=== PATIENT | female | born 1985 | race Caucasian/White ===

== ENCOUNTER 2018-02-12 22:17 | Inpatient (IN) ==
[~2018-02-12 22:17] MED LIST: Diphtheria/Tetanus/Pertussis Vaccine Inj 0.5 ML Syringe IM ONE; Measles/Mumps/Rubella Vaccine Inj 0.5 ML Vial SQ ONE
[2018-02-12] MEDS ORDERED: Oxytocin 30 Units/500ml Premix 30 UNITS/500 ML BAG IV.SIG ONE (22:29)
[2018-02-12] MEDS ORDERED: Penicillin G Potassium Inj 5,000,000 UNIT in Sodium Chloride 0.9% Inj 100 ML IV.SIG ONE (22:29)
[2018-02-12] MEDS ORDERED: Sodium Chlor 0.9% Inj 500 ML IV.SIG PRN (22:29)
[2018-02-12] MEDS ORDERED: Naloxone Inj 0.4 MG/ML Vial IV.PUSH PRN ×2 (22:29→23:20)
[2018-02-12] MEDS ORDERED: fentaNYL Citrate Inj 100 MCG/2 ML Ampul IV.PUSH PRN ×2 (22:29)
[2018-02-12] MEDS ORDERED: Sod Chloride 0.9% Inj 1,000 ML IV.CONT PRN (22:29)
[2018-02-12] MEDS ORDERED: Citric Acid/Sodium Citrate Liq 30 ML UDC PO SCH (22:30)
--- NOTE | 2018-02-12 22:36 | ED ---
History of Present Illness Primary Care Physician: Dr. Fuentes Chief Complaint: Complains of spontaneous rupture of membranes and contractions History of Present Illness: 32-year-old at term - 38.1 weeks presents complaining of spontaneous rupture of membranes and contractions. GBS positive. Otherwise care uneventful with Dr. Fuentes Gestation:: 38 Para: 0 : 1 - Inpatient Certification I certify that the inpatient services were ordered in accordance with Medicare regulations governing the order. This includes certification that hospital inpatient services are reasonable and necessary and in the case of services not specified as inpatient-only under 42 CFR 419.22(n), that they are appropriately provided as inpatient services in accordance to with the 2-midnight benchmark under 43 CFR 412.3(e) Review of Systems All other systems reviewed negative except as stated in HPI PMFSH - Social History I have reviewed the patient's Social History: Yes - Tobacco History Smoking Status: Never smoker - Alcohol History How Often Do You Have a Drink Containing Alcohol: Never - Substance Use History Substance History: No History of Abuse Medications and Allergies Allergies Allergy/AdvReac Type Severity Reaction Status Date / Time No Known Allergies Allergy Verified 02/12/18 22:29 Exam - Constitutional severe distress - Routine HEENT Exam Head: Present: normocephalic ENT: Present: mucous membranes moist - Routine Neck Exam Present: supple - Routine Chest/Breast/Axilla Exam Chest wall: Absent: tenderness - Routine Respiratory Exam Absent: accessory muscle use - Routine Cardiovascular Exam Present: RRR - Routine Abdominal Exam Present: soft (Gravid heart tones present) - Routine Exam Comments: Cervix 7-8 cm soft 90% effaced 0 station - Routine Extremities Exam Absent: cyanosis - Routine Skin Exam Present: intact - Routine Neurological Exam Present: alert, oriented X3 Assessment and Plan - Diagnosis (1) Uterine contractions Status: Acute (2) Leakage of amniotic fluid Code(s): O42.90 - Premature rupture of membranes, unspecified as to length of time between rupture and onset of labor, unspecified weeks of gestation Status : Acute (3) 38 weeks gestation of Code(s): Z3A.38 - 38 weeks gestation of Status: Acute Discharge Plan - Discharge Disposition Patient Disposition: 30 Still Patient - Physicians Team ED Provider: Kaur Lowery Primary Care Provider: NOT REQUIRED,
--- NOTE | 2018-02-12 22:39 | P.HPOB ---
Patient Name: Luanne Flor Date of : 89 Patient Status: Inpatient Attending Provider: Rebeca Fuentes Date: 02/12/18 22:28 Initialization Date: 02/12/18 22:28 History of Present Illness Primary Care Physician: Dr. Fuentes Chief Complaint: Complains of spontaneous rupture of membranes and contractions History of Present Illness: 32-year-old at term - 38.1 weeks presents complaining of spontaneous rupture of membranes and contractions. GBS positive. Otherwise care uneventful with Dr. Fuentes Weeks Gestation:: 38 Para: 0 : 1 - Inpatient Certification I certify that the inpatient services were ordered in accordance with Medicare regulations governing the order. This includes certification that hospital inpatient services are reasonable and necessary and in the case of services not specified as inpatient-only under 42 CFR 419.22(n), that they are appropriately provided as inpatient services in accordance to with the 2-midnight benchmark under 43 CFR 412.3(e) Review of Systems All other systems reviewed negative except as stated in HPI PMFSH - Social History I have reviewed the patient's Social History: Yes - Tobacco History Smoking Status: Never smoker - Alcohol History How Often Do You Have a Drink Containing Alcohol: Never - Substance Use History Substance History: No History of Abuse Medications and Allergies Allergies Allergy/AdvReac Type Severity Reaction Status Date / Time No Known Allergies Allergy Verified 02/12/18 22:29 Exam - Constitutional severe distress - Routine HEENT Exam Head: Present: normocephalic ENT: Present: mucous membranes moist - Routine Neck Exam Present: supple - Routine Chest/Breast/Axilla Exam Chest wall: Absent: tenderness - Routine Respiratory Exam Absent: accessory muscle use - Routine Cardiovascular Exam Present: RRR - Routine Abdominal Exam Present: soft (Gravid heart tones present) - Routine Exam Comments: Cervix 7-8 cm soft 90% effaced 0 station - Routine Extremities Exam Absent: cyanosis - Routine Skin Exam Present: intact - Routine Neurological Exam Present: alert, oriented X3 Assessment and Plan - Diagnosis (1) Uterine contractions Status: Acute (2) Leakage of amniotic fluid Code(s): O42.90 - Premature rupture of membranes, unspecified as to length of time between rupture and onset of labor, unspecified weeks of gestation Status : Acute (3) 38 weeks gestation of Code(s): Z3A.38 - 38 weeks gestation of Status: Acute Discharge Plan - Physicians Team ED Provider: Kaur Lowery Primary Care Provider: NOT REQUIRED, Admit- Dr. Jacome aware GBS + -start ABX
[2018-02-12 22:45] LABS: Baso % (Auto) 0.4 % (0.0-2.0); Eos # (Auto) 0.1 th/mm3 (0.0-0.4); Eos % (Auto) 0.7 % (0.0-4.0); Hematocrit 37.3 % (35.0-46.0); Lymph # (Auto) 1.4 th/mm3 (1.0-4.8); Lymph % (Auto) 16.6 % (9.0-44.0); Mean Corpuscular Hemoglobin 33.2 pg (27.0-34.0); Mean Corpuscular Volume 94.8 fL (80.0-100.0); Mean Platelet Volume 9.5 fL (7.0-11.0); Mono # (Auto) 0.5 th/mm3 (0.0-0.9); Neut # (Auto) 6.5 th/mm3 (1.8-7.7); Neut % (Auto) 76.3 % (16.0-70.0); Platelet Count 141 th/mm3 (150-450); Red Blood Count 3.93 mil/mm3 (4.00-5.30); Red Cell Distribution Width 13.9 % (11.6-17.2); White Blood Count 8.5 th/mm3 (4.0-11.0)
[2018-02-12] MEDS ORDERED: Lidocaaine 1.5%/Epinephrine 1:200,000 PF Inj 5 ML Amp ONE (22:53)
[2018-02-12] MEDS ORDERED: Lidocaine PF 1% Inj 5 ML Vial ONE (22:53)
[2018-02-12] MEDS ORDERED: Lidocaine 1% Inj 50 ML Vial ONE (22:58)
[2018-02-12] MEDS ORDERED: Oxytocin 30 Units/500ml Premix 30 UNITS/500 ML BAG IV.CONT PRN (23:20)
[2018-02-12] MEDS ORDERED: Acetaminophen 325 MG Tablet PO PRN (23:20)
[2018-02-12] MEDS ORDERED: Zolpidem Tartrate 5 MG Tablet PO PRN (23:20)
[2018-02-12] MEDS ORDERED: Witch Hazel 50%/Glyderin 12.5% 40 Pad Jar RECTAL PRN (23:20)
[2018-02-12] MEDS ORDERED: Bisacodyl 10 MG Supp RECTAL PRN (23:20)
[2018-02-12] MEDS ORDERED: Benzocaine 20% Top Spray 60 ML Can TOPICAL PRN (23:20)
--- NOTE | 2018-02-12 23:21 | P.OBDELI ---
Weeks Gestation: 38 Patient Started Active Labor: Yes Medical Induction of Labor: No Artificial Rupture of Membrane: No Anesthesia: None, Lidocaine local to perineum Episiotomy: midline Vaginal Delivery: Normal Presentation: Occiput anterior Nuchal Cord: None Delayed Cord Clamping (45 sec): Yes Placenta: Spontaneous delivery, Intact, 3 vessel cord Laceration: Episiotomy, 1 deg Repair: Chromic running Estimated blood loss (mL): 200 : Female Infant Female A Delivery Date: 02/12/18 Delivery Time: 23:21 score (1 min): 9 score (5 min): 9
[2018-02-12 23:32] LABS: Bilirubin,Urine Negative (Negative); Clarity,Urine Clear (Clear); Color,Urine Straw (Yellw/Straw); Glucose,Urine (UA) Negative (Negative); Leukocyte Esterase,Urine Negative (Negative); Mucus,Urine Few /lpf (Occasional); Nitrite,Urine Negative (Negative); Specific Gravity,Urine 1.004 (1.002-1.035); Squamous Epithelial Cell,Urine <1 /hpf (0-5)
[2018-02-12 23:36] LABS: Amphetamine Urine With Conf Neg (Neg); Benzodiazepine Urine With Conf Neg (Neg); Cocaine Urine With Conf Neg (Neg); Opiates Urine With Conf Neg (Neg)
[2018-02-12 23:38] LABS: Cannabinoid Urine With Conf Neg (Neg)
[2018-02-13] MEDS ORDERED: Penicillin G Potassium Inj 2,500,000 UNIT in Sodium Chlor 0.9% Inj 100 ML IV.SIG SCH (02:30)
--- NOTE | 2018-02-13 07:54 | P.PNOB ---
Subjective Post day: 1 Interval history: doing well, no complaints, Objective Vital Signs/I&O: Vital Signs 02/12/18 22:33 02/12/18 23:12 02/12/18 23:22 Temperature Pulse Rate 96 H 107 H 108 H Respiratory Rate 18 Blood Pressure 142/73 H 143/111 H 148/58 H 02/12/18 23:31 02/12/18 23:41 02/12/18 23:45 Temperature Pulse Rate 106 H 92 H Respiratory Rate 18 Blood Pressure 133/58 L 132/58 L 02/13/18 00:05 02/13/18 00:16 02/13/18 00:20 Temperature 98.6 F Pulse Rate 95 H 90 91 H Respiratory Rate 18 18 Blood Pressure 143/68 H 139/68 134/68 02/13/18 00:47 02/13/18 01:01 02/13/18 01:50 Temperature 99.2 F Pulse Rate 84 87 Respiratory Rate 18 16 Blood Pressure 139/64 124/63 Intake & Output 02/12/18 02/13/18 02/13/18 18:59 06:59 18:59 Weight 77.111 kg Result Diagrams: 02/12/18 22:25 Objective Remarks: GENERAL: Well-nourished, well-developed patient. CARDIOVASCULAR: Regular rate and rhythm without murmurs, gallops, or rubs. RESPIRATORY: Breath sounds equal bilaterally. No accessory muscle use. ABDOMEN/GI: Abdomen soft, non-tender. Fundus: Firm, non-tender at umbilicus. GENITOURINARY: Light to moderate bleeding. EXTREMITIES: No cyanosis or edema, non-tender, without signs of DVT. Medications and IVs: Active Medications Acetaminophen (Tylenol) 650 mg PO Q4H PRN PRN Reason: PAIN SCALE 1 TO 2 Al Hydroxide/Mg Hydroxide (Milk Of Magnesia Liq) 30 ml PO Q12H PRN PRN Reason: Mild Constipation Benzocaine (Americaine 20% Top [place]) 1 spray TOPICAL Q4H PRN PRN Reason: For Perineum Discomfort Bisacodyl (Dulcolax Supp) 10 mg RECTAL DAILY PRN PRN Reason: SEVERE CONSITIPATION Citric Acid/Sodium Citrate (Sodium Citrate/Citric Acid Liq) 30 ml PO [facility] ANTONIA Stop: 02/16/18 22:29 Fentanyl Citrate (Fentanyl Inj) 50 mcg IV.PUSH Q1H PRN PRN Reason: Pain Scale 3 - 5 Fentanyl Citrate (Fentanyl Inj) 100 mcg IV.PUSH Q1H PRN PRN Reason: PAIN SCALE 6 TO 10 Lactated Ringer's (Lr 1000 Ml Inj) 1,000 mls @ 3,000 mls/hr IV.SIG UNSCH PRN PRN Reason: compromise or epidural Lactated Ringer's (Lr 1000 Ml Inj) 1,000 mls @ 125 mls/hr IV.CONT .Q8H ANTONIA Last Admin: 02/12/18 22:20 Dose: 125 mls/hr Sodium Chloride (Ns Inj) 500 mls @ 1,000 mls/hr IV.SIG UNSCH PRN PRN Reason: SEE LABEL COMMENTS Sodium Chloride (Ns Inj) 1,000 mls @ 100 mls/hr IV.CONT .Q10H PRN PRN Reason: SEE LABEL COMMENTS Penicillin G Potassium 2,500, (000 unit/ Sodium Chloride) 100 mls @ 200 mls/hr IV.SIG Q4H ANTONIA Oxytocin (Pitocin 30 Units/Ns 500 Ml Premix) 30 units in 500 mls @ 100 mls/hr IV.CONT UNSCH PRN PRN Reason: Heavy bleeding Ibuprofen (Motrin) 800 mg PO Q8H PRN PRN Reason: For Cramping Lactulose (Lactulose Liq) 30 ml PO DAILY PRN PRN Reason: SEVERE CONSITIPATION Lidocaine HCl (Xylocaine 1% Inj) 0.1 ml I-DERMAL PRN PRN PRN Reason: For IV start Stop: 02/15/18 22:28 Lidocaine HCl (Xylocaine 1% Inj) 10 ml INFILTRATN PRN PRN PRN Reason: For episiotomy repair Stop: 02/14/18 22:28 Mineral Oil (Muri-Lube Oil) 10 ml TOPICAL PRN PRN PRN Reason: PRN perineal massage Naloxone HCl (Narcan Inj) 0.1 mg IV.PUSH Q2M PRN PRN Reason: for opiate reversal Naloxone HCl (Narcan Inj) 0.1 mg IV.PUSH Q2M PRN PRN Reason: for opiate reversal Ondansetron HCl (Zofran Odt) 4 mg PO Q6H PRN PRN Reason: NAUSEA OR VOMITING Senna/Docusate Sodium (Katherine-Colace) 1 tab PO BID ANTONIA Sennosides (Senokot) 17.2 mg PO Q12H PRN PRN Reason: Moderate Constipation Sodium Chloride (Ns Flush) 2 ml IV.FLUSH BID ANTONIA Sodium Chloride (Ns Flush) 2 ml IV.FLUSH PRN PRN PRN Reason: FLUSH AFTER USING IV ACCESS Witch Nallely/Glycerin (Tucks Pads) 1 applicatio RECTAL QID PRN PRN Reason: HEMORRHOIDS Zolpidem Tartrate (Ambien) 5 mg PO HS PRN PRN Reason: SLEEP Assessment and Plan - Diagnosis (1) Vaginal delivery Code(s): O80 - Encounter for full-term uncomplicated delivery Status: Acute (2) 38 weeks gestation of Code(s): Z3A.38 - 38 weeks gestation of Status: Acute - Plan PPD #1 , rapid delivery, GBBS+ routine PP care Discharge Planning: consider discharge PPD #2 - Attending Attestation pt seen by me
[2018-02-13] MEDS: Senna/Docusate Sodium 8.6/50 MG Tablet PO SCH ×2 (08:05→21:22)
--- NOTE | 2018-02-14 05:55 | P.PNOB ---
Subjective Post day: 2 Interval history: Nursing well small epis not bothersome ready for discharge Objective Vital Signs/I&O: Vital Signs 02/13/18 08:10 02/13/18 20:00 Temperature 97.9 F 98.5 F Pulse Rate 90 86 Respiratory Rate 17 18 Blood Pressure 137/69 131/63 Intake & Output 02/13/18 02/13/18 02/14/18 06:59 18:59 06:59 Weight 77.111 kg Result Diagrams: 02/12/18 22:25 Objective Remarks: GENERAL: Well-nourished, well-developed patient. CARDIOVASCULAR: Regular rate and rhythm without murmurs, gallops, or rubs. RESPIRATORY: Breath sounds equal bilaterally. No accessory muscle use. ABDOMEN/GI: Abdomen soft, non-tender. Fundus: Firm, non-tender at umbilicus. GENITOURINARY: Light to moderate bleeding. EXTREMITIES: No cyanosis or edema, non-tender, without signs of DVT. Medications and IVs: Active Medications Acetaminophen (Tylenol) 650 mg PO Q4H PRN PRN Reason: PAIN SCALE 1 TO 2 Al Hydroxide/Mg Hydroxide (Milk Of Magnesia Liq) 30 ml PO Q12H PRN PRN Reason: Mild Constipation Benzocaine (Americaine 20% Top [place]) 1 spray TOPICAL Q4H PRN PRN Reason: For Perineum Discomfort Bisacodyl (Dulcolax Supp) 10 mg RECTAL DAILY PRN PRN Reason: SEVERE CONSITIPATION Citric Acid/Sodium Citrate (Sodium Citrate/Citric Acid Liq) 30 ml PO [facility] Stop: 02/16/18 22:29 Fentanyl Citrate (Fentanyl Inj) 50 mcg IV.PUSH Q1H PRN PRN Reason: Pain Scale 3 - 5 Fentanyl Citrate (Fentanyl Inj) 100 mcg IV.PUSH Q1H PRN PRN Reason: PAIN SCALE 6 TO 10 Lactated Ringer's (Lr 1000 Ml Inj) 1,000 mls @ 3,000 mls/hr IV.SIG UNSCH PRN PRN Reason: compromise or epidural Lactated Ringer's (Lr 1000 Ml Inj) 1,000 mls @ 125 mls/hr IV.CONT .Q8H [facility] Last Admin: 02/13/18 22:30 Dose: Not Given Sodium Chloride (Ns Inj) 500 mls @ 1,000 mls/hr IV.SIG UNSCH PRN PRN Reason: SEE LABEL COMMENTS Sodium Chloride (Ns Inj) 1,000 mls @ 100 mls/hr IV.CONT .Q10H PRN PRN Reason: SEE LABEL COMMENTS Penicillin G Potassium 2,500, (000 unit/ Sodium Chloride) 100 mls @ 200 mls/hr IV.SIG Q4H ANTONIA Oxytocin (Pitocin 30 Units/Ns 500 Ml Premix) 30 units in 500 mls @ 100 mls/hr IV.CONT UNSCH PRN PRN Reason: Heavy bleeding Ibuprofen (Motrin) 800 mg PO Q8H PRN PRN Reason: For Cramping Last Admin: 02/13/18 17:26 Dose: 800 mg Lactulose (Lactulose Liq) 30 ml PO DAILY PRN PRN Reason: SEVERE CONSITIPATION Lidocaine HCl (Xylocaine 1% Inj) 0.1 ml I-DERMAL PRN PRN PRN Reason: For IV start Stop: 02/15/18 22:28 Lidocaine HCl (Xylocaine 1% Inj) 10 ml INFILTRATN PRN PRN PRN Reason: For episiotomy repair Stop: 02/14/18 22:28 Mineral Oil (Muri-Lube Oil) 10 ml TOPICAL PRN PRN PRN Reason: PRN perineal massage Naloxone HCl (Narcan Inj) 0.1 mg IV.PUSH Q2M PRN PRN Reason: for opiate reversal Naloxone HCl (Narcan Inj) 0.1 mg IV.PUSH Q2M PRN PRN Reason: for opiate reversal Ondansetron HCl (Zofran Odt) 4 mg PO Q6H PRN PRN Reason: NAUSEA OR VOMITING Senna/Docusate Sodium (Katherine-Colace) 1 tab PO BID [facility] Last Admin: 02/13/18 21:22 Dose: 1 tab Sennosides (Senokot) 17.2 mg PO Q12H PRN PRN Reason: Moderate Constipation Sodium Chloride (Ns Flush) 2 ml IV.FLUSH BID [facility] Last Admin: 02/13/18 23:28 Dose: Not Given Sodium Chloride (Ns Flush) 2 ml IV.FLUSH PRN PRN PRN Reason: FLUSH AFTER USING IV ACCESS Witch Nallely/Glycerin (Tucks Pads) 1 applicatio RECTAL QID PRN PRN Reason: HEMORRHOIDS Zolpidem Tartrate (Ambien) 5 mg PO HS PRN PRN Reason: SLEEP Assessment and Plan - Diagnosis (1) Vaginal delivery Code(s): O80 - Encounter for full-term uncomplicated delivery Status: Acute (2) 38 weeks gestation of Code(s): Z3A.38 - 38 weeks gestation of Status: Acute - Plan PPD #1 , rapid delivery, GBBS+ routine PP care 02/14/18 0600 ready to be discharged today counseled on what to expect and when to call RTO 2 weeks or prn Discharge Planning: consider discharge PPD #2
[2018-02-14 08:23] VITALS: BP 104/59; PULSE 78; RESP 20; TEMP 97.7
[2018-02-14] MEDS: Senna/Docusate Sodium 8.6/50 MG Tablet PO SCH (08:27)
== END 2018-02-14 17:37 | disposition home or self-care (01) ==
LOC: HOBED 22:17 → H2E 22:24 → H1EA 02-13 01:18
PROVIDERS: ADMIT Obstetrics & Gynecology; ATTEND Obstetrics & Gynecology